=== PATIENT | female | born 1955 | race Caucasian/White ===

== ENCOUNTER 2023-03-10 08:30 | Outpatient (RCR) | payer MEDICARE, SELFPAY ==
--- NOTE | 2022-12-08 11:00 | HP.PTEVAL_ITS ---
Patient's Visit Information Visit Information Visit Information: HERNAN SEGURA is a 67 year old F referred to Physical Therapy by CARLYN JARRELL with a diagnosis of Right Knee Pain. Date of Evaluation: 12/08/22 Physical Therapist: Megan Duffy DPT Visit Plan Frequency: 2x /Week Duration: 4 Weeks Plan: Right Meniscal Tear-focus on LE and core strength/stabilization. HEP Given IE: SLR, clams, hip extn, Hamstring Stretch Subjective Subjective: Late July/Early August she took a fall- slipped on a book- took one for a kid- landed on her knees- goes to a chiro monthly- she started treating it monthly- adjustments/ultrasound/e-stim which made it worse- so she ordered an MRI- showed a torn meniscus. Saw orthopedic MD and he told her it can take 6 months to a year to heal so he gave her an injection and PT- she had an injection 11/26/22- she continued to play pickleball. She tried to play the next day after the injection but it was so painful she stopped. She worked on Tuesday at [employer]- by Tuesday she was able to go upstairs but not down- by Tue she could do both up and down but not down recip. Now she is able to go up/down recip- and now she has pain in the calf and its tight. She has been traveling and ran yesterday and it felt okay. She has a posterior medial meniscal tear. Before Injection: the pain was towards the back- aggravated by nagging ache- night time was uncomfortable to sleep Worst: 9/10 Best: 0/10. Did have some radiating pain down into the archer. In the last 48 hours: Worst: 1-2/10 pain is located in the calf area- she did a lot of walking in [facility]. Best: 0/10 Describes the pain as dull and achy. No radiating pain into the hip. She has never had any issues with blood clots. Work: [employer]- off season-3-4 days- lots of steps-does have to carry things on the stairs up to [address]. She plays a lot of pickleball- she does not enjoy exercise. Sleep: disturbed- side sleeper. PMHX: cholesterol Meds: lipitor Objective Objective: Posture: FH, RS- can correct but does not maintain Gait: no deviation noted Stairs: asc: recip- no deviation noted Desc: recip with 1 HR- poor control with descent and reports pain HR/TR: able SLS: 15 sec but does have increase hip drop and muscle activation Palpation: tender along gastroc- but not point tender Edema: none noted ROM: 0-130 degrees Squat: slight weight shift and valgus at the knees Strength: Ankle: 5/5 Knee: Extn: 42.3 Flexion: 16.0, Hip: 4-/5 throughout, Core: fair minus Flex: HS: moderate, Gastroc: moderate Balance/Special Test Scores Lower Extremity Functional Score: 57 Goals Goal 1:: Patient will be I with HEP and progression Goal Time Frame: 4-6 Weeks Goal 2:: Patient will squat with good mechanics and no pain Goal Time Frame: 4-6 Weeks Goal 3:: Patient will asc/desc 8 stairs recip with normal pattern and no pain with no HR Goal Time Frame: 4-6 Weeks Goal 4:: Patient will report 80% improvement Goal Time Frame: 4-6 Weeks Rehabilitation Potential Physical Therapy Diagnosis: Patient presents with hypomobility- she has decreased LE and core strength/stabilization, flex and muscular endurance leading to instability and increased pain with ADL's/recreational activities. Rehabilitation Potential: Good Anticipated Interventions Patient/Client Instruction: Educate patient on: Benefits of Fitness Program Therapeutic Exercise to Include: Strength training, Endurance training, Balance training, Coordination, Agility training, Body mechanics, Postural training, Flexibilty training, Gait and locomotor training, Dynamic Lumbar Stabilization and Scapular Strength/Stabilization TENS: Yes Cryotherapy (ice pack, ice massage): Yes Thermo therapy (hot pack): Yes Ultrasound (thermal/non thermal): Yes Text: Thank you for the opportunity to evaluate your patient. For Medicare and Medicare HMO plans, please review the plan of care and approve it. It will need to be FAXED BACK to us at [phone] for Medicare purposes. For Medicare only, by signing this I certify the plan of care. Please let me know if there are questions or concerns regarding this plan of care. Physician Signature: Date:
--- NOTE | 2023-03-10 08:58 | HP.PTDCSUM ---
Discharge Summary D/C summary: It has been my pleasure to treat HERNAN SEGURA referred by CARLYN JARRELL, with the diagnosis of Right Knee Pain for a total of 15 visit(s). Discharge Date: Please see the following information for a summary of their discharge status. Subjective Subjective: Pt reports pain still wakes her up at night time Pain R knee: Pain Intensity (Out of 10): 2 Overall Improvement % Improvement: 60 Objective Objective/Function: R knee pain ranges from 2-5/10 Pt is I with HEP Pt is able to negotiate 10 stairs, but still experiences increased pain at this time Pt is able to squat without pain Rx goals partially achieved Goals Goal 1:: Patient will be I with HEP and progression Goal Progress: Goal Met Goal 2:: Patient will squat with good mechanics and no pain Goal Progress: Goal Met Goal 3:: Patient will asc/desc 8 stairs recip with normal pattern and no pain with no HR Goal Progress: Progressing Goal 4:: Patient will report 80% improvement Goal Progress: Progressing Plan Plan: Discontinue to HEP prior to surgery D/C Information d/c sentence: If there are questions or concerns regarding this patient's physical therapy, please feel free to call me at [phone]. Thank you for the referral of this patient. Sincerely, Quentin Collado, PT, ATC Balance/Gait/Functional tests Balance/Special Test Scores Lower Extremity Functional Score: 64 Improvement % Improvement: 60
== END 2023-03-10 19:00 | disposition home or self-care (01) ==
LOC: PT 08:30
PROVIDERS: PCP Family Medicine
DX: M25.561 Pain in right knee (principal)
CPT/HCPCS: 97110; 97162; 97164

== ENCOUNTER 2023-06-15 13:30 | Outpatient (RCR) | payer MEDICARE, SELFPAY ==
--- NOTE | 2023-04-20 14:26 | HP.PTEVAL_ITS ---
Patient's Visit Information Visit Information Visit Information: HERNAN SEGURA is a 67 year old F referred to Physical Therapy by CARLYN JARRELL with a diagnosis of R medial menisectomy 04/12/23. Date of Evaluation: 04/20/23 Physical Therapist: Quentin Collado, PT, ATC Visit Plan Frequency: 2-3x /Week Duration: 4-6 Weeks Plan: R knee stretching and strengthening, balance and proprio, core strengthening, bike, and HEP. Protocol is in chart to follow if any questions. CP for pain Subjective Subjective: DOS: 04/12/23. Pt reports she had a R medial menisectomy performed at that time. Pt reports she tore her R medial meniscus while carrying her grand daughter 8 months ago. Pt notes she was still functional throughout those 10 months, but the pain remained. Pt reports she feels much better since having her surgery. Pt reports she is an avid pickle ball player and works at the [employer], and would like to get back to both of those as soon as possible. Pt denies any tingling or numbness in R LE, but notes she feels an awkward sensation at times as she is gaining more sensation in her R knee region. No sleep difficulty at this time secondary to pain. Pt reports she has stairs at work and at home. Pt notes she has been negotiating one step at a time until on her way here today where she negotiated steps reciprocally. R knee pain ranges from 0-1/10 at this time, and is described as more of a tightness than pain. Pain R knee pain: Pain Intensity (Out of 10): 0 Pain Intensity Range: 1 Objective Objective: Neuro: B LE sensation is WNL to light touch. B achilles reflex= 2/3 Observation: Incisions are still healing. steri strips are still on. No signs of infection. Girth at joint line: R knee 38 cm, L knee 37 cm ROM: L knee 0-5-135, R knee 0-10-115 MMT: L knee flex= 34, ext= 54 #F: R knee flex= 14, ext= 35 #F Balance/Special Test Scores Lower Extremity Functional Score: 49 Goals Goal 1:: Decrease R knee pain x 50% to aid with ambulation Goal Time Frame: 4-6 Weeks Goal 2:: Increase R knee ROM x 20 degrees to aid with squatting type activity Goal Time Frame: 4-6 Weeks Goal 3:: Increase R knee strength x 30 #F to aid with return to pickle ball without limitation Goal Time Frame: 4-6 Weeks Goal 4:: I with HEP Goal Time Frame: 4-6 Weeks Rehabilitation Potential Physical Therapy Diagnosis: Pt has R knee pain, weakness, and limited ROM secondary to being s/p R knee menisectomy Rehabilitation Potential: Good Anticipated Interventions Patient/Client Instruction: Educate patient on: Condition and Plan of Care For the Purpose of:: To improve self management Therapeutic Exercise to Include: Strength training, Endurance training, Balance training, Flexibilty training, Passive ROM, Active ROM and Dynamic Lumbar Stabilization For the Purpose of:: To decrease pain, To increase ROM and To improve muscle performance and motor function Cryotherapy (ice pack, ice massage): Yes For the Purpose of:: To decrease pain Text: Thank you for the opportunity to evaluate your patient. For Medicare and Medicare HMO plans, please review the plan of care and approve it. It will need to be FAXED BACK to us at [phone] for Medicare purposes. For Medicare only, by signing this I certify the plan of care. Please let me know if there are questions or concerns regarding this plan of care. Physician Signature: Date:
--- NOTE | 2023-05-20 13:08 | HP.PTREVAL ---
Re-Evaluation Intro: CARLYN JARRELL, It has been my pleasure to treat HERNAN SEGURA over the last 14 visits for R medial menisectomy 04/12/23. Please see the progress note below for an update on the physical therapy plan of care! Subjective Subjective: Patient reports she is just having occasional discomfort in her R knee. She states she is having less stiffness and plans to return to [employer] next week and that was OK'd by her surgeon at last follow up. Objective Objective/Function: Patient was seen today for Re-assessment of progress toward the set PT goals and the need for further PT vs readiness for discharge. Patient is making good progress toward all goals and is a good candidate to continue PT based on progress made and room for further improvement. Upon Evaluation today: Girth at joint line: R knee 37.5 cm, L knee 37 cm ROM: L knee 0-5-135, R knee 0-5-130 MMT: L knee flex= 34, ext= 54 #F: R knee flex= 26.6, ext= 42.9 #F Plan Plan Plan: Continue PT 2x's a wk x 6 more visits for R knee stretching and strengthening, balance and proprio, core strengthening, bike, and HEP. Protocol is in chart to follow if any questions. CP for pain. Balance/Gait/Functional tests Balance/Special Test Scores Lower Extremity Functional Score: 66 Goals Goals Goal 1:: Decrease R knee pain x 50% to aid with ambulation Goal Time Frame: 4-6 Weeks Goal Progress: Goal Met Goal 2:: Increase R knee ROM x 20 degrees to aid with squatting type activity Goal Time Frame: 4-6 Weeks Goal Progress: Progressing Goal 3:: Increase R knee strength x 30 #F to aid with return to pickle ball without limitation Goal Time Frame: 4-6 Weeks Goal Progress: Not Progressing Goal 4:: I with HEP Goal Time Frame: 4-6 Weeks Goal Progress: Progressing Anticipated Interventions Anticipated Interventions Patient/Client Instruction: Educate patient on: Condition and Plan of Care For the Purpose of:: To improve self management Therapeutic Exercise to Include: Strength training, Endurance training, Balance training, Flexibilty training, Passive ROM, Active ROM and Dynamic Lumbar Stabilization For the Purpose of:: To decrease pain, To increase ROM and To improve muscle performance and motor function Cryotherapy (ice pack, ice massage): Yes For the Purpose of:: To decrease pain Re-Evaluation Ending Re-evaluation ending: Please do not hesitate to contact me at [phone] by phone or if you have questions or concerns regarding this new plan of care! Sincerely, Cathy Chamberlain, PT, Cert MDT
--- NOTE | 2023-06-15 14:36 | HP.PTREVAL ---
Re-Evaluation Intro: CARLYN JARRELL, It has been my pleasure to treat HERNAN SEGURA over the last 20 visits for R medial menisectomy 04/12/23. Please see the progress note below for an update on the physical therapy plan of care! Subjective Subjective: Pt reports she still has stiffness, but is still improving. Objective Objective/Function: R knee pain ranges from 1-8/10 R knee ROM: 0-140 degrees R knee MMT: flex= 40, ext= 49 #F Pt is I with HEP Plan Plan Plan: Follow up or discharge in one month Balance/Gait/Functional tests Balance/Special Test Scores Lower Extremity Functional Score: 80 Goals Goals Goal 1:: Decrease R knee pain x 50% to aid with ambulation Goal Time Frame: 4-6 Weeks Goal Progress: Goal Met Goal 2:: Increase R knee ROM x 20 degrees to aid with squatting type activity Goal Time Frame: 4-6 Weeks Goal Progress: Goal Met Goal 3:: Increase R knee strength x 30 #F to aid with return to pickle ball without limitation Goal Time Frame: 4-6 Weeks Goal Progress: Goal Met Goal 4:: I with HEP Goal Time Frame: 4-6 Weeks Goal Progress: Goal Met Anticipated Interventions Anticipated Interventions Patient/Client Instruction: Educate patient on: Condition and Plan of Care For the Purpose of:: To improve self management Therapeutic Exercise to Include: Strength training, Endurance training, Balance training, Flexibilty training, Passive ROM, Active ROM and Dynamic Lumbar Stabilization For the Purpose of:: To decrease pain, To increase ROM and To improve muscle performance and motor function Cryotherapy (ice pack, ice massage): Yes For the Purpose of:: To decrease pain Re-Evaluation Ending Re-evaluation ending: Please do not hesitate to contact me at [phone] by phone or if you have questions or concerns regarding this new plan of care! Sincerely, Quentin Collado, PT, ATC
--- NOTE | 2023-10-18 10:22 | HP.PTDCNRP_ITS ---
Patient Information Patient Information: HERNAN SEGURA was seen in my office for initial evaluation on 04/20/23. The following Plan of Care was established for this patient: POC Established Initial Frequency: 2-3x /Week Initial Duration: 4-6 Weeks Anticipated Interventions Patient/Client Instruction: Educate patient on: Condition and Plan of Care For the Purpose of:: To improve self management Therapeutic Exercise to Include: Strength training, Endurance training, Balance training, Flexibilty training, Passive ROM, Active ROM and Dynamic Lumbar S tabilization For the Purpose of:: To decrease pain, To increase ROM and To improve muscle performance and motor function Cryotherapy (ice pack, ice massage): Yes For the Purpose of:: To decrease pain Last Seen Last Seen: This patient was last seen in our office . Pertinent comments regarding their Physical therapy will appear below: Pt was treated for 20 PT visits for R knee pain through the date of 06/15/23. Pt has not returned through todays date and is discontinued at this time. At this point I will be discontinuing this patient from physical therapy. I would be happy to see this patient again in the future if found appropriate by the physician. Thank you! Quentin Collado, PT, ATC Balance/Gait/Functional tests Balance/Special Test Scores Lower Extremity Functional Score: 80
== END 2023-06-15 19:00 | disposition home or self-care (01) ==
LOC: PT 13:30
PROVIDERS: PCP Family Medicine
DX: S83.241D Other tear of medial meniscus, current injury, right knee, subsequent encounter (principal)
CPT/HCPCS: 97016; 97110; 97161; 97164